=== PATIENT | male | born 1965 | race Caucasian/White ===

== ENCOUNTER 2018-09-04 13:27 | Emergency (ER) | payer OTHER, SELFPAY ==
[2018-09-04 14:29] VITALS: BP 127/85; PULSE 81; RESP 18; TEMP 36.3; O2SAT 98; BMI 34.4
--- NOTE | 2018-09-04 14:31 | DI.RAD.S_ITS ---
PROCEDURE: XR KNEE LT 3V INDICATIONS: INJURED KNEE YESTERDAY TECHNIQUE: 3 views of the knee were acquired. COMPARISON: None. FINDINGS: Bones: No fractures or dislocations. No suspicious bony lesions. Soft tissues: No joint effusion. Mild medial compartment chondrocalcinosis. IMPRESSION: 1. No acute fractures. 2. Mild medial compartment chondrocalcinosis. Dictated by: Anne Jamison M.D. on 09/04/2018 at 15:15 Approved by: Anne Jamison M.D. on 09/04/2018 at 15:15
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
[2018-09-04 17:44] VITALS: BP 133/68; PULSE 85; RESP 14; O2SAT 97
[2018-09-04] MEDS: KETOROLAC 60 MG/2 ML VIAL IM (17:54)
[2018-09-04 18:45] VITALS: BP 136/91; PULSE 82; RESP 18; O2SAT 100
== END 2018-09-04 18:45 | disposition home or self-care (01) ==
PROVIDERS: Emergency Provider Emergency Medicine; Family Provider Family Medicine; PCP Family Medicine
DX: M23.92 Unspecified internal derangement of left knee (principal); W18.43XA Slipping, tripping and stumbling without falling due to stepping from one level to another, initial encounter; Y99.0 Civilian activity done for income or pay
CPT/HCPCS: 73562; 96372; 99283; J1885

== ENCOUNTER 2018-09-28 21:13 | Emergency (ER) | payer OTHER, SELFPAY ==
[2018-09-28 21:39] VITALS: BP 143/91; PULSE 86; RESP 15; TEMP 36.2; O2SAT 94; BMI 33.5
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
[2018-09-28 23:44] VITALS: BP 142/97; PULSE 79; RESP 16; O2SAT 95
[2018-09-29] MEDS: TET,DIPH,PERTUSS(ACELL),VAC/PF 0.5 ML SYRINGE IM (00:55)
--- NOTE | 2018-09-29 01:13 | PC.NURSE ---
Posterior right hand from nuckles to wrist erythema
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
== END 2018-09-29 01:33 | disposition home or self-care (01) ==
PROVIDERS: Emergency Provider Emergency Medicine; Family Provider Family Medicine; PCP Family Medicine
DX: T23.001A Burn of unspecified degree of right hand, unspecified site, initial encounter (principal); T20.00XA Burn of unspecified degree of head, face, and neck, unspecified site, initial encounter; X08.8XXA Exposure to other specified smoke, fire and flames, initial encounter
CPT/HCPCS: 99283; 90715

== ENCOUNTER → 2018-11-22 20:02 | Outpatient (CLI) | payer OTHER, SELFPAY ==
--- NOTE | 2018-11-22 20:04 | DI.MRI.S_ITS ---
PROCEDURE: MR KNEE LT WO CON INDICATIONS: PAIN IN LEFT KNEE TECHNIQUE: Noncontrast sagittal PD fast spin echo and T2 fast spin echo with fat saturation, sagittal 3-D FLASH with fat saturation; coronal T1 spin echo and PD fast spin echo with fat saturation, and axial PD fast spin echo with fat saturation through the knee. COMPARISON: None. FINDINGS: Image quality: Excellent. Menisci: Complex tear involving anterior horn, body and posterior horn of medial meniscus is seen extending to both superior and inferior articulating surfaces. There is no focal lateral meniscal tear. Peripheral displacement of medial meniscus is noted bowing medial collateral ligament. The meniscal root ligaments appear intact. Cruciate ligaments: The anterior and posterior cruciate ligaments appear intact. Medial structures: Moderate grade sprain/ partial-thickness tear involving medial collateral ligament is seen.. The posterior oblique ligament, semimembranosus tendon insertions, oblique popliteal ligament, and meniscocapsular junction appear intact. Visualized portions of the pes anserinus tendons appear normal. No abnormal bursal fluid. Lateral structures: The lateral collateral ligament, long and short heads of the biceps femoris tendon appear intact. The popliteus tendon appears normal; the popliteofibular ligament appears intact. The posterosuperior and anteroinferior popliteomeniscal fascicles appear intact. The arcuate and fabellofibular ligaments appear intact, on either side of the lateral inferior geniculate artery. Iliotibial band appears normal. Anterior structures: The quadriceps appears intact. Thickened patella tendon is seen near its inferior patellar insertion suggestive of patellar tendinosis. No evidence of patella tendon rupture.. Patellar alignment is normal. No femoral trochlear dysplasia or ventral trochlear prominence. No edema in the infrapatellar fat pad. Bones and cartilage: Mild to moderate tricompartmental osteoarthritis and chondromalacia is seen most prominent in the medial femoral tibial compartment. Mild edema involving medial periphery of proximal tibia extending to medial tibial plateau is seen, no discrete fracture line. No other area of abnormal marrow signal. Joint space: There is small to moderate amount of joint fluid, no gross loose body. No Yi's cyst. Normal appearing synovial plicae are incidentally noted. IMPRESSION: 1. Complex tear involving entire medial meniscus extending to both superior and inferior articulating surfaces. No evidence of focal lateral meniscal tear. 2. Moderate grade sprain/partial thickness tear involving the collateral ligament. Cruciate ligaments are intact. 3. [id number] tricompartmental osteoarthritis and chondromalacia most prominent in the medial femorotibial compartment. Small to moderate amount of joint effusion. No gross loose body. Dictated by: Eran Montero M.D. on 11/23/2018 at 9:45 Approved by: Eran Montero M.D. on 11/23/2018 at 9:58
== END ==
PROVIDERS: Family Provider Family Medicine; PCP Family Medicine; Visit Provider Family Medicine
DX: M25.562 Pain in left knee (principal); S83.232A Complex tear of medial meniscus, current injury, left knee, initial encounter; S83.412A Sprain of medial collateral ligament of left knee, initial encounter; M17.12 Unilateral primary osteoarthritis, left knee; M94.262 Chondromalacia, left knee; M25.462 Effusion, left knee
CPT/HCPCS: 73721

== ENCOUNTER → 2019-03-11 16:08 | Outpatient (CLI) | payer OTHER, SELFPAY ==
[2019-03-11 16:56] LABS: Add Manual Diff / Slide Review NO; Basophils Absolute Auto 0 /uL (0-100); Basophils Percent Auto 0.4 % (0-2); Eosinophils Absolute Auto 300 /uL (0-450); Eosinophils Percent Auto 3.9 % (2-4); Hematocrit 47.1 % (41-53); Hemoglobin 16.5 g/dL (13.5-17.5); Lymphocytes Absolute Auto 2400 /uL (1100-4500); Lymphocytes Percent Auto 29.8 % (25-40); Mean Corpuscular HGB Conc 35.1 % (30-36); Mean Corpuscular Hemoglobin 30.5 PG (26-34); Mean Corpuscular Volume 86.9 fL (80-100); Monocytes Absolute Auto 300 /uL (0-900); Monocytes Percent Auto 4.2 % (3-14); Neutrophils Absolute Auto 5100 /uL (1500-7000); Neutrophils Percent Auto 61.7 % (50-75); Platelet Count 194 X10^3/uL (150-400); Red Blood Cell Count 5.42 X10^6/uL (4.5-5.9); Red Cell Distribution Width 12.9 % (11.6-14.8); White Blood Cell Count 8.2 X10^3/uL (4.5-11.0)
[2019-03-11 17:14] LABS: Carbon Dioxide 25 mmol/L (22-32); Chloride 103 mmol/L (98-107); HEMOLYSIS < 15 (0-50); Sodium 138 mmol/L (137-145)
== END ==
PROVIDERS: PCP Family Medicine; Visit Provider Orthopaedic Surgery
DX: Z01.812 Encounter for preprocedural laboratory examination (principal); M17.32 Unilateral post-traumatic osteoarthritis, left knee
CPT/HCPCS: 36415; 80051; 85025; 93005

== ENCOUNTER 2019-03-15 08:31 | Day surgery (SDC) | payer OTHER, SELFPAY ==
[2019-03-15] VITALS (9 sets, daily range): BP systolic 112–146; BP diastolic 62–98; PULSE 90–103; RESP 11–19; TEMP 35.9–36.9; O2SAT 92–98; BMI 36.0
--- NOTE | 2019-03-15 06:00 | DI.RAD.S_ITS ---
PROCEDURE: XR KNEE LT 1TO2V INDICATIONS: uni left knee post operative TECHNIQUE: 2 views of the knee were acquired. [facility]IC SERIES [facility], 11/25/2018, 15:21. FINDINGS: Bones: Status post medial compartment arthroplasty. Hardware is in expected location. No fractures or dislocations. No suspicious bony lesions. Soft tissues: No joint effusion. No suspicious soft tissue calcifications. IMPRESSION: Expected appearance of medial compartment arthroplasty. Dictated by: Johnathan Tello M.D. on 03/15/2019 at 19:22 Approved by: Johnathan Tello M.D. on 03/15/2019 at 19:22
[2019-03-15] MEDS: ACETAMINOPHEN 325 MG TABLET 975 MG PO (09:03)
[2019-03-15] MEDS: PREGABALIN 75 MG CAPSULE PO (09:03)
[2019-03-15] MEDS: CELECOXIB 200 MG CAPSULE PO (09:03)
[2019-03-15] MEDS: LACTATED RINGERS 1,000 ML 42 ML IV ×2 (10:50→16:54)
[2019-03-15] MEDS: VANCOMYCIN 1,000 MG/200 ML PIGGYBACK 200 MG IV (10:50)
--- NOTE | 2019-03-15 11:32 | SUR.PREOP ---
Stopped Vancomycin infusion at this time per MD Orellana verbal order. pt surgery delayed at this time regarding npo status of non surgery ensure drink at 0700.
--- NOTE | 2019-03-15 12:46 | PM.PREOP ---
Pre-operative Note Interval Note History & Physical reviewed/Exam performed by Physician: Yes Changes to H&P: No
--- NOTE | 2019-03-15 12:47 | P.OP_ITS ---
Operative Date/Time/Diagnoses Date of procedure: 03/15/19 Time of procedure: 15:08 Pre-op diagnosis: left knee medial uni replacement Post-op diagnosis: same Procedure & Clinicians Procedure: left knee medial Uni compartment replacement Same procedure as scheduled: Yes Indications: Patient has severe left knee medial compartment arthritis and is brought the operating room for a medial unicompartment replacement. Surgeon: Shelly Orellana Interventional Tech: Dionna Reyes Anesthesia Type: General Operative Notes Findings: Severe left knee medial compartment arthritis, mild patellofemoral arthritis, no obvious lateral compartment also arthritis Closure Type: primary Prosthetic devices, grafts, tissues, transplants, or devices: Orellana and Nephew medial unicompartment ZUK size E femur, size 4 tibia, +10 poly Estimated Blood Loss (mL): 200 Blood products transfused: none Tourniquet time (min): 91 Procedure in detail: The patient was seen in the pre-operative area, where the left knee was identified as the operative site and this was marked with my initials. The patient received pre-operative antibiotics, and was taken to the operating room and placed on the operative table in the supine position. After satisfactory anesthesia, a timekeeping supervisor out was performed. The left leg was encircled with a tourniquet about the proximal thigh, and the leg was prepared from the toes to the tourniquet with ChloroPrep in the usual fashion and draped through sterile drapes. The leg was elevated and exsanguinated with Eschmark bandage and the tourniquet inflated to [250] mmHg pressure. The knee was approached through an approximately 14 cm incision medial parapatella incision and carried into the knee through a medial parapatellar arthrotomy. The osteophytes and medial meniscus were removed. Next, a small amount of the anterior tibial boss was carefully resected with a saw. The guide was placed along the medial joint line. It was meticulously adjusted to make sure there was appropriate slope that it was at the joint line and then was pinned to the tibia and the femur. The medial femoral condylar cut was made in extension. The tibial cut was made in flexion. The bone was meticulously irrigated with normal saline. Small amount of additional meniscus was resected posterior capsule was checked and injected with Marcaine. The extension gap was carefully checked with an 8 mm gap field party manager was noted that it fit well. A small number of additional osteophytes were resected. The tibia was a size [4]. It was noted that it fit without overhang. The femur was sized and it was noted to be a [E]. The appropriate cutting guide was pinned into place and carefully positioned on the femoral condyle. Drill holes were placed. The tibia was pinned into place and drill holes were made. Trial reduction with the appropriate poly showed full range of motion and good stability at 0, 45. and 90? with normal tracking of the components without edge loading. The bone was meticulously irrigated and dried. Additional Marcaine was injected. The posterior capsule was injected with 0.25% Marcaine mixed with 20 ml Exparel for post-operative pain control. The remainder of this mixture was injected into the capsule and subcutaneous tissues during cement curing. Range of motion was [0-130], with good stability throughout the range. The trials were then remove. The cement was as applied and the final pros thetics placed. Excess cement was removed during and after cement curing. A brief medial compartment Betadine soak was performed. After confirming there was no extruded cement posteriorly, the final tibial insert was placed. The knee was copiously irrigated and the tourniquet deflated. Hemostasis was obtained. The capsule was closed with interrupted Vicryl. The subcutaneous tissue was closed with barbed sutures. The skin with a running 3-0 V-Lock suture and surgical glue. An Aquacel Ag dressing was applied and the patient was taken to recovery having tolerated the procedure well. Complications: none Condition: stable Disposition: same day surgery Plan for aftercare: The patient will be maintained on a standard unicompartment knee replacement protocol with weight bearing as tolerated. The patient will receive aspirin and sequential compression devices for DVT prophylaxis. The patient will be discharged home when safe for the home environment.
--- NOTE | 2019-03-15 12:48 | PM.PREOP ---
Pre-operative Note Interval Note History & Physical reviewed/Exam performed by Physician: Yes Changes to H&P: No
--- NOTE | 2019-03-15 15:20 | SUR.PREOP ---
Restarted the remaining vancomycin at this time per Dr. Orellana.
[2019-03-15] MEDS: CEFAZOLIN 2 GM/100 ML FROZ.PIGGY IV (16:20)
--- NOTE | 2019-03-15 16:45 | SUR.OPER ---
Supine on padded OR bed. Pillow under head, arms secured on padded armboards <90 degree abduction. Safety belt across torso. Non-operative leg secured with tape over blanket over lower leg. Operative leg secured in Henry positioner. Foam padded brace at thigh of operative leg.
[2019-03-15] MEDS: BUPIVACAINE 0.25% W/ EPI 30 ML VIAL 60 ML INJ (16:50)
[2019-03-15] MEDS: SODIUM CHLORIDE IRRIG SOLUTION 250 ML, POVIDONE-IODINE SPONGE STICKS 1 APPLIC IRR (16:51)
[2019-03-15] MEDS: BUPIVACAINE LIPOSOME 266 MG/20 ML VIAL INJ (16:51)
[2019-03-15] MEDS: TRANEXAMIC ACID 1,000 MG VIAL 1000 MG INJ (16:52)
[2019-03-15] MEDS: fentaNYL 100 MCG/2 ML INJ 50 MCG IV (19:04)
[2019-03-15] MEDS: OXYCODONE IR 5 MG TABLET PO (19:07)
--- NOTE | 2019-03-15 19:11 | SUR.PHASEI ---
190 PO rx for c/o pain/throbbing in left knee. Pt states pain is 7/10, however he is joking, laughing, asking about dancing, going to the casino, etc. present. [address] Dr Orellana talking with patient and . Pt. plans to go home [place].
--- NOTE | 2019-03-15 19:35 | SUR.PHASEI ---
1934 slight nausea, declines PO rx, quease-ease given.
--- NOTE | 2019-03-15 20:02 | SUR.PHASEII ---
1935+ transferred to phase II care; anxious to go home, pain level improving and tolerable. Discussed the necessity of CPAP use w/pt and spouse. VSS, no drainage at site, CMS WNL. IV dc'd and clothes given.
== END 2019-03-15 19:52 | disposition home or self-care (01) ==
PROVIDERS: PCP Family Medicine; Visit Provider Orthopaedic Surgery
PROC: (CPT 27446; principal; 2019-03-15 10:45)
DX: S83.222A Peripheral tear of medial meniscus, current injury, left knee, initial encounter (principal); M17.32 Unilateral post-traumatic osteoarthritis, left knee; K21.9 Gastro-esophageal reflux disease without esophagitis; Z72.0 Tobacco use; W17.2XXA Fall into hole, initial encounter
CPT/HCPCS: 27446; 73560; C1776; C9290; J0690; J1100; J2250; J2405; J2704; J3010

== ENCOUNTER → 2019-08-31 11:16 | Outpatient (CLI) | payer OTHER, SELFPAY ==
[2019-08-31 12:15] LABS: Add Manual Diff / Slide Review NO; Basophils Absolute Auto 0 /uL (0-100); Basophils Percent Auto 0.4 % (0-2); Eosinophils Absolute Auto 300 /uL (0-450); Eosinophils Percent Auto 3.8 % (2-4); Hematocrit 47.5 % (41-53); Hemoglobin 16.3 g/dL (13.5-17.5); Lymphocytes Absolute Auto 2100 /uL (1100-4500); Lymphocytes Percent Auto 30.4 % (25-40); Mean Corpuscular HGB Conc 34.3 % (30-36); Mean Corpuscular Hemoglobin 30.4 PG (26-34); Mean Corpuscular Volume 88.5 fL (80-100); Monocytes Absolute Auto 500 /uL (0-900); Monocytes Percent Auto 7.6 % (3-14); Neutrophils Absolute Auto 4000 /uL (1500-7000); Neutrophils Percent Auto 57.8 % (50-75); Platelet Count 211 X10^3/uL (150-400); Red Blood Cell Count 5.37 X10^6/uL (4.5-5.9); Red Cell Distribution Width 13.9 % (11.6-14.8); White Blood Cell Count 6.9 X10^3/uL (4.5-11.0)
[2019-08-31 13:22] LABS: Erythrocyte Sedimentation Rate 4 MM/HR (0-15)
[2019-08-31 13:34] LABS: C-Reactive Protein Quant < 0.5 mg/dL (<1.0)
== END ==
PROVIDERS: PCP Family Medicine; Referring Provider Orthopaedic Surgery; Visit Provider Orthopaedic Surgery
DX: M17.12 Unilateral primary osteoarthritis, left knee (principal); Z96.652 Presence of left artificial knee joint
CPT/HCPCS: 36415; 85025; 85651; 86140

== ENCOUNTER → 2019-09-19 10:12 | Outpatient (CLI) | payer OTHER, SELFPAY ==
--- NOTE | 2019-09-19 | DI.NM.S_ITS ---
PROCEDURE: NM BONE SCAN WHOLE BODY RADIOPHARMACEUTICAL: 21.0 mCi Tc-99m MDP IV. INDICATIONS: Presence of left artificial knee joint TECHNIQUE: Delayed whole-body scintigrams were obtained approximately 3-4 hours after intravenous injection of radiotracer. Anterior and posterior views were acquired from vertex to feet. Additional left and right oblique views of the left knee were obtained. COMPARISON: [facility], [place], XR KNEE ARTHRITIC SERIES LT, 03/30/2019, 15:59. [facility], CR, XR KNEE ARTHRITIC SERIES LT, 06/29/2019, 9:30. [facility], CR, XR KNEE ARTHRITIC SERIES LT, 07/27/2019, 10:14. [facility], CR, XR KNEE ARTHRITIC SERIES LT, 11/25/2018, 15:21. [facility], CR, KNEE 1 OR 2VW (LT), 05/05/2014, 9:59. [facility], CR, KNEE 1 OR 2VW (RT), 05/05/2014, 10:04. FINDINGS: Relative subtle radiotracer uptake noted adjacent to the femoral component of left knee medial unicondylar arthroplasty likely related to postsurgical change. Relative intense radiotracer uptake noted adjacent to the tibial component of the left knee medial unicondylar arthroplasty which is nonspecific and may represent loosening or infection of the prosthesis. Relative subtle radiotracer uptake noted in the shoulders bilaterally compatible with osteoarthritis. IMPRESSION: 1. Relative intense radiotracer uptake adjacent to tibial component of left knee arthroplasty concerning for prosthesis loosening or infection. 2. Relative mild radiotracer uptake adjacent to the femoral component of left knee arthroplasty likely related to postsurgical change. Dictated by: Rabia Duff MD, PhD on 09/19/2019 at 14:42 Approved by: Rabia Duff MD, PhD on 09/19/2019 at 14:47
== END ==
PROVIDERS: PCP Family Medicine; Referring Provider Family Medicine; Visit Provider Orthopaedic Surgery
DX: M25.562 Pain in left knee (principal); M17.12 Unilateral primary osteoarthritis, left knee; Z96.652 Presence of left artificial knee joint
CPT/HCPCS: 78306; A9503

== ENCOUNTER 2020-01-09 11:54 | Emergency (ER) | payer OTHER, SELFPAY ==
[2020-01-09 12:04] VITALS: BP 159/101; PULSE 92; RESP 20; TEMP 36.7; O2SAT 99; BMI 37.3
[2020-01-09 12:30] VITALS: PULSE 80
--- NOTE | 2020-01-09 12:40 | DI.US.S_ITS ---
PROCEDURE: US PERIPH VENOUS LOW EXTREM LT INDICATIONS: PAIN TECHNIQUE: Real-time imaging, as well as color and pulse Doppler interrogation, were performed of the lower extremity deep veins from the inguinal ligament to the popliteal fossa. COMPARISON: None. FINDINGS: The common femoral, femoral and popliteal veins are normally compressible, and free of intraluminal thrombus. Color and pulse Doppler demonstrate normal phasic intraluminal flow. There is normal augmentation response to distal compression maneuver. Large popliteal cyst is evident. IMPRESSION: 1. No evidence of deep vein thrombosis of the left lower extremity. 2. Apparent Yi's cyst. Dictated by: Ethan Díaz M.D. on 01/09/2020 at 12:30 Approved by: Ethan Díaz M.D. on 01/09/2020 at 12:31
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
[2020-01-09 13:20] LABS: Add Manual Diff / Slide Review NO; Basophils Absolute Auto 100 /uL (0-100); Basophils Percent Auto 0.5 % (0-2); Eosinophils Absolute Auto 200 /uL (0-450); Eosinophils Percent Auto 2.1 % (2-4); Hematocrit 43.5 % (41-53); Hemoglobin 14.8 g/dL (13.5-17.5); Lymphocytes Absolute Auto 2000 /uL (1100-4500); Lymphocytes Percent Auto 21.1 % (25-40); Mean Corpuscular HGB Conc 34.1 % (30-36); Mean Corpuscular Hemoglobin 29.9 PG (26-34); Mean Corpuscular Volume 87.8 fL (80-100); Monocytes Absolute Auto 600 /uL (0-900); Monocytes Percent Auto 5.8 % (3-14); Neutrophils Absolute Auto 6800 /uL (1500-7000); Neutrophils Percent Auto 70.5 % (50-75); Platelet Count 301 X10^3/uL (150-400); Red Blood Cell Count 4.95 X10^6/uL (4.5-5.9); Red Cell Distribution Width 13.1 % (11.6-14.8); White Blood Cell Count 9.6 X10^3/uL (4.5-11.0)
[2020-01-09 13:31] LABS: Lactate (Lactic Acid) 1.1 mmol/L (0.7-2.1)
[2020-01-09 13:32] LABS: Blood Urea Nitrogen 30 mg/dL (9-20); Calcium 10.2 mg/dL (8.4-10.2); Carbon Dioxide 26 mmol/L (22-32); Chloride 107 mmol/L (98-107); Estimated Glomerular Filt Rate > 60.0 mL/min (>60); Glucose 104 mg/dL (70-100); HEMOLYSIS < 15 (0-50); Potassium 4.3 mmol/L (3.4-5.1); Sodium 141 mmol/L (137-145)
[2020-01-09 13:55] VITALS: BP 103/65; PULSE 86; RESP 18; O2SAT 99
== END 2020-01-09 13:57 | disposition home or self-care (01) ==
PROVIDERS: Emergency Provider Nurse Practitioner Family; PCP Family Medicine
DX: G89.18 Other acute postprocedural pain (principal); M79.605 Pain in left leg; M71.22 Synovial cyst of popliteal space [Baker], left knee; Z96.653 Presence of artificial knee joint, bilateral
CPT/HCPCS: 36415; 80048; 83605; 85025; 93971; 99281; 99284

== ENCOUNTER → 2020-01-24 10:52 | Outpatient (CLI) | payer OTHER, SELFPAY ==
--- NOTE | 2020-01-24 | DI.MRI.S_ITS ---
PROCEDURE: MR LUMBAR SPINE WO CON INDICATIONS: radiculopathy , lumbosacral region TECHNIQUE: Noncontrast sagittal T1 spin echo and T2 fast echo, sagittal STIR, axial T1 and T2 fast spin echo through the lumbar spine. Axial and oblique coronal T1 spin echo and STIR through the sacrum. In cases with scoliosis, additional coronal T2 fast spin echo may be performed. COMPARISON: [place], [place], [place] BONE SCAN WHOLE BODY, 09/19/2019, 13:39. FINDINGS: Image quality: Excellent. Alignment and Curvature: There is normal bony alignment. Bone Marrow: Marrow is of normal overall signal. No acute vertebral body compression fractures. No sacral fractures. Spinal Cord: Conus medullaris terminates at the L1 level. Visualized cord demonstrates normal signal and size. Paraspinous Soft Tissues: No paravertebral masses. T12-L1: Normal appearance. L1-L2: Normal appearance. L2-L3: No significant abnormality is seen. L3-L4: The disc height and disc signal are relatively well-preserved. Mild to moderate disc bulge is seen. Hmil-iy-uvtjbugg facet hypertrophy is seen. Vzwe-lo-nylaxdop bilateral neural foraminal narrowing is seen. Mild central canal narrowing is seen. L4-L5: The disc height is well-preserved. Loss of disc signal is seen at this level. Moderate disc bulge is seen, with a mild central disc protrusion. There is a focal annular fissure seen posteriorly. Moderate bilateral neural foraminal narrowing is seen. Mild central canal narrowing is seen. L5-S1: Moderate loss of disc height is seen. Loss of disc signal is seen. There is a focal annular fissure seen posteriorly. Moderate disc bulge is seen, which is eccentric to the left. There is a central/left disc protrusion seen. Qcts-ps-nikiwzia facet hypertrophy is seen. There is at least moderate bilateral neural foraminal narrowing seen, right worse than left. Mild to moderate central canal narrowing is seen. Sacrum: Sacral neural foramina appear normal throughout. Superior to the piriformis muscles, the pre-plexal structures appear normal, including the lumbosacral trunk and S1 root. Just anterior to the piriformis muscles, the sacral plexus proper demonstrates normal morphology (lumbosacral trunk, S1 to S3 nerve roots). Inferior to the piriformis muscles, the sciatic nerves appear normal. IMPRESSION: Lower lumbar spine degenerative changes are seen, which are most prominent at the L5-S1 level. No significant signal abnormality is seen. Dictated by: Cristopher Chao M.D. on 01/24/2020 at 11:06 Approved by: Cristopher Chao M.D. on 01/24/2020 at 11:09
== END ==
PROVIDERS: PCP Family Medicine; Referring Provider Registered Nurse Diabetes Educator; Visit Provider Registered Nurse Diabetes Educator
DX: M47.27 Other spondylosis with radiculopathy, lumbosacral region (principal)
CPT/HCPCS: 72148

== ENCOUNTER → 2020-04-09 15:30 | Outpatient (CLI) | payer OTHER, SELFPAY ==
--- NOTE | 2020-04-09 | DI.MRI.S_ITS ---
PROCEDURE: MR ANKLE RT WO CON INDICATIONS: RIGHT HEEL PAIN TECHNIQUE: Noncontrast sagittal T1 spin echo and T2 fast spin echo with fat saturation, axial proton density fast spin echo and T2 fast spin echo with fat saturation, coronal T1 spin echo and T2 fast spin echo with fat saturation through the ankle/hindfoot. COMPARISON: [facility], MR, MR ANKLE LT WO CON, 04/09/2020, 15:46. FINDINGS: Image quality: Excellent. Bones and joints: No bone marrow contusions or fractures. Mild midfoot joint osteoarthritic changes are seen particularly involving tarsal metatarsal joints. No hindfoot coalitions. No osteochondral injuries of the talar dome. No pathologic joint effusions. Medial structures: The posterior tibialis, flexor digitorum longus, and flexor hallucis longus tendons are intact. The posterior tibial neurovascular bundle appears normal within the tarsal tunnel, without extrinsic mass effect. The deep layer (anterior and posterior tibiotalar ligaments) and superficial layer (tibionavicular, tibiospring, and tibiocalcaneal ligaments) of the deltoid ligament appear normal. The spring ligament components (superomedial calcaneonavicular, medioplantar oblique calcaneonavicular, and inferoplantar longitudinal ligaments) are intact. Lateral structures: The anterior talofibular, calcaneofibular, and posterior talofibular ligaments appear intact. More superiorly, the anterior and posterior tibiofibular ligaments appear intact, as is the intermalleolar ligament. The tibiofibular syndesmosis is normal in width at 2 mm or less. The peroneus longus and brevis tendons demonstrate normal location and morphology. Adjacent bony peroneal tubercle and retrotrochlear prominence are normal in size. The sinus tarsi demonstrates normal fatty signal, without edema, fibrosis, or cyst formation. Visualized sinus tarsi components (cervical ligament, interosseous talocalcaneal ligament, roots of the inferior extensor retinaculum) appear normal. The calcaneonavicular and calcaneocuboid components of the bifurcate ligament appear intact. The dorsal calcaneocuboid ligament appears intact. Anterior structures: The tibialis anterior, extensor hallucis longus, and extensor digitorum longus tendons appear intact. The dorsal talonavicular ligament appears intact. Posterior and plantar structures: Achilles tendon is intact. Mildly thickened medial band of plantar aponeurosis at its plantar calcaneal insertion is seen. Lateral band is of normal thickness.. No abductor digiti quinti muscle atrophy to suggest [place]jo neuropathy. IMPRESSION: 1. Suggestion of very low-grade plantar fasciitis with thickening of medial band of the plantar fascia at its plantar calcaneal insertion. Achilles tendon is intact. 2. Mild midfoot joint osteoarthritis particularly involving tarsal metatarsal joints. No marrow edema. No fracture or dislocation. 3. Rest of ankle tendons and ligaments are intact. Dictated by: Eran Montero M.D. on 04/09/2020 at 16:48 Approved by: Eran Montero M.D. on 04/09/2020 at 16:50
--- NOTE | 2020-04-09 15:33 | DI.MRI.S_ITS ---
PROCEDURE: MR ANKLE LT WO CON INDICATIONS: LEFT HEEL PAIN TECHNIQUE: Noncontrast sagittal T1 spin echo and T2 fast spin echo with fat saturation, axial proton density fast spin echo and T2 fast spin echo with fat saturation, coronal T1 spin echo and T2 fast spin echo with fat saturation through the ankle/hindfoot. COMPARISON: None. FINDINGS: Image quality: Excellent. Bones and joints: No bone marrow contusions or fractures. Mild midfoot joint osteoarthritic changes are seen. No hindfoot coalitions. No osteochondral injuries of the talar dome. No pathologic joint effusions. Medial structures: The posterior tibialis, flexor digitorum longus, and flexor hallucis longus tendons are intact. The posterior tibial neurovascular bundle appears normal within the tarsal tunnel, without extrinsic mass effect. The deep layer (anterior and posterior tibiotalar ligaments) and superficial layer (tibionavicular, tibiospring, and tibiocalcaneal ligaments) of the deltoid ligament appear normal. The spring ligament components (superomedial calcaneonavicular, medioplantar oblique calcaneonavicular, and inferoplantar longitudinal ligaments) are intact. Lateral structures: The anterior talofibular, calcaneofibular, and posterior talofibular ligaments appear intact. More superiorly, the anterior and posterior tibiofibular ligaments appear intact, as is the intermalleolar ligament. The tibiofibular syndesmosis is normal in width at 2 mm or less. The peroneus longus and brevis tendons demonstrate normal location and morphology. Adjacent bony peroneal tubercle and retrotrochlear prominence are normal in size. The sinus tarsi demonstrates normal fatty signal, without edema, fibrosis, or cyst formation. Visualized sinus tarsi components (cervical ligament, interosseous talocalcaneal ligament, roots of the inferior extensor retinaculum) appear normal. The calcaneonavicular and calcaneocuboid components of the bifurcate ligament appear intact. The dorsal calcaneocuboid ligament appears intact. Anterior structures: The tibialis anterior, extensor hallucis longus, and extensor digitorum longus tendons appear intact. The dorsal talonavicular ligament appears intact. Posterior and plantar structures: Distal Achilles tendinosis at its posterior calcaneal insertion is seen. No evidence of Achilles tendon rupture. Medial band of plantar fascia is mildly thickened at its plantar calcaneal insertion. Lateral band is normal in thickness. No abductor digiti quinti muscle atrophy to suggest [place] neuropathy. IMPRESSION: 1. Very mild thickening of medial band of the plantar fascia at its plantar calcaneal insertion suggestive of very low-grade plantar fasciitis. 2. Suggestion of mild tendinosis involving distal Achilles tendon at its posterior calcaneal insertion. 3. Rest of the ankle tendons and ligaments are intact. 4. Mild midfoot joint osteoarthritis. No fracture or dislocation. Dictated by: Eran Montero M.D. on 04/09/2020 at 16:40 Approved by: Eran Montero M.D. on 04/09/2020 at 16:47
== END ==
PROVIDERS: PCP Family Medicine; Referring Provider Podiatrist; Visit Provider Podiatrist
DX: M79.671 Pain in right foot (principal); M79.672 Pain in left foot; M72.2 Plantar fascial fibromatosis; M19.072 Primary osteoarthritis, left ankle and foot; M19.071 Primary osteoarthritis, right ankle and foot
CPT/HCPCS: 73721

== ENCOUNTER 2020-06-15 10:04 | Emergency (ER) | payer OTHER, SELFPAY ==
[2020-06-15 10:05] VITALS: BP 138/84; PULSE 79; RESP 22; TEMP 36.1; O2SAT 98; BMI 37.3
--- NOTE | 2020-06-15 10:17 | DI.RAD.S_ITS ---
PROCEDURE: XR CHEST 1V INDICATIONS: chest pain TECHNIQUE: One view of the chest was acquired. COMPARISON: [facility], , CHEST 2VW, 05/05/2014, 9:58. FINDINGS: Surgical changes and devices: None. Lungs and pleura: Lungs are clear. No pleural effusions or pneumothorax. Mediastinum: Mediastinal contours appear normal. Heart size is normal. Bones and chest wall: No suspicious bony lesions. Age-appropriate bony degenerative changes are seen. Overlying soft tissues appear unremarkable. IMPRESSION: Portable chest within normal limits. Dictated by: Cristopher Chao M.D. on 06/15/2020 at 9:41 Approved by: Cristopher Chao M.D. on 06/15/2020 at 9:43
[2020-06-15 10:25] LABS: Add Manual Diff / Slide Review NO; Basophils Absolute Auto 0 /uL (0-100); Basophils Percent Auto 0.3 % (0-2); Eosinophils Absolute Auto 200 /uL (0-450); Eosinophils Percent Auto 3.2 % (2-4); Hematocrit 47.8 % (41-53); Hemoglobin 16.3 g/dL (13.5-17.5); Lymphocytes Absolute Auto 1900 /uL (1100-4500); Lymphocytes Percent Auto 28.7 % (25-40); Mean Corpuscular HGB Conc 34.2 % (30-36); Mean Corpuscular Hemoglobin 29.6 PG (26-34); Mean Corpuscular Volume 86.4 fL (80-100); Monocytes Absolute Auto 400 /uL (0-900); Monocytes Percent Auto 6.4 % (3-14); Neutrophils Absolute Auto 4200 /uL (1500-7000); Neutrophils Percent Auto 61.4 % (50-75); Platelet Count 201 X10^3/uL (150-400); Red Blood Cell Count 5.52 X10^6/uL (4.5-5.9); Red Cell Distribution Width 13.8 % (11.6-14.8); White Blood Cell Count 6.8 X10^3/uL (4.5-11.0)
[2020-06-15 10:27] LABS: INR 1.1 (0.9-1.3); Prothrombin Time 12.4 SECONDS (10.1-12.7)
[2020-06-15 10:29] LABS: PTT Partial Thromboplastin Tim 34 SECONDS (26.4-36.2)
[2020-06-15 10:31] LABS: Alanine Aminotransferase 30 IU/L (<50); Albumin 4.2 g/dL (3.5-5.0); Albumin Globulin Ratio 1.4 (1.0-2.8); Alkaline Phosphatase 108 U/L (38-126); Aspartate Aminotransferase 28 IU/L (17-59); BUN Creatinine Ratio 15.8 (6-22); Bilirubin Total 1.4 mg/dL (0.2-1.3); Blood Urea Nitrogen 18 mg/dL (9-20); Calcium 9.6 mg/dL (8.4-10.2); Carbon Dioxide 29 mmol/L (22-32); Chloride 102 mmol/L (98-107); Creatine Kinase 78 U/L (55-170); Estimated Glomerular Filt Rate > 60.0 mL/min (>60); Globulin 3.1 g/dL (1.7-4.1); Glucose 150 mg/dL (70-100); HEMOLYSIS 15 (0-50); Lipase 56 U/L (23-300); Potassium 4.1 mmol/L (3.4-5.1); Sodium 135 mmol/L (137-145); Total Protein 7.3 g/dL (6.3-8.2)
[2020-06-15 10:43] LABS: Troponin I < 0.012 ng/mL (0.01-0.034)
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
[2020-06-15 11:45] VITALS: PULSE 87; O2SAT 96
--- NOTE | 2020-06-15 11:50 | DI.US.S_ITS ---
PROCEDURE: US PERIPH VENOUS LOW EXTREM BI INDICATIONS: SWELLING, REMOTE SURGERY, RULE OUT DVT TECHNIQUE: Real-time imaging, as well as color and pulse Doppler interrogation, were performed of the deep veins of both legs from the inguinal ligament to the popliteal fossa. COMPARISON: None. FINDINGS: Right: The common femoral, femoral and popliteal veins are normally compressible, and free of intraluminal thrombus. Color and pulse Doppler demonstrate normal phasic intravascular flow. There is normal augmentation response to distal compression maneuver. Left: The common femoral, femoral and popliteal veins are normally compressible, and free of intraluminal thrombus. Color and pulse Doppler demonstrate normal phasic intravascular flow. There is normal augmentation response to distal compression maneuver. IMPRESSION: No sonographic evidence of DVT. Dictated by: Zay Amor M.D. on 06/15/2020 at 13:23 Approved by: Zay Amor M.D. on 06/15/2020 at 13:24
[2020-06-15] MEDS: MAG HYDROX/ALUMINUM/SIMETH SUS 20 ML, LIDOCAINE VISCOUS 2% 15 ML PO (12:06)
[2020-06-15 12:07] LABS: D Dimer 374 ng/mL (<230)
[2020-06-15] MEDS: PANTOPRAZOLE 40 MG VIAL IV (12:07)
[2020-06-15 12:15] LABS: NT-proBNP (BNP-Adult 18+) 20 pg/mL (<125)
--- NOTE | 2020-06-15 12:51 | DI.CT.S_ITS ---
PROCEDURE: CT ANGIO CHEST PE PROTOCOL INDICATIONS: chest pain TECHNIQUE: After the administration of intravenous contrast, 2 mm thick sections acquired from the pulmonary apices to the posterior costophrenic angles. 3-dimensional maximum intensity projection (MIP) coronal and sagittal reformats were then acquired through the thorax. For radiation dose reduction, the following was used: automated exposure control, adjustment of mA and/or kV according to patient size. COMPARISON: [facility], US, US VENOUS LOWER EXTREMITY DOPPLER LEFT, 04/30/2020, 12:14. FINDINGS: Image quality: Excellent. Pulmonary arteries: Pulmonary arteries are normal in size, and demonstrate no intraluminal filling defects to suggest central pulmonary embolism. Lungs and pleura: Lungs are clear except for slight dependent atelectasis. No pleural effusions or pneumothorax. Central and peripheral airways are patent. Mediastinum: Heart size is normal, without pericardial effusion. No mediastinal or hilar adenopathy. Thoracic aorta is normal in caliber and enhancement. Esophagus is normal in caliber, without hiatal hernia. Bones and chest wall: No suspicious bony lesions. Ribs and thoracic spine appear intact throughout. Thyroid gland appears normal where well seen . No axillary or supraclavicular adenopathy. Abdomen: Visualized upper abdominal solid organs appear normal in the early arterial phase of enhancement. IMPRESSION: No pulmonary embolus found. Source of current chest pain symptoms is not identified. Dictated by: García Cyr M.D. on 06/15/2020 at 13:20 Approved by: García Cyr M.D. on 06/15/2020 at 13:22
[2020-06-15 13:00] VITALS: BP 150/86; PULSE 74; RESP 16; O2SAT 97
[2020-06-15 13:30] VITALS: BP 145/93; PULSE 79; RESP 20; O2SAT 97
== END 2020-06-15 13:53 | disposition home or self-care (01) ==
PROVIDERS: Emergency Provider Emergency Medicine
DX: R07.9 Chest pain, unspecified (principal); F17.220 Nicotine dependence, chewing tobacco, uncomplicated; M79.89 Other specified soft tissue disorders
CPT/HCPCS: 36415; 71045; 71275; 80053; 82550; 83690; 83880; 84484; 85025; 85379; 85610; 85730; 93005; 93010; 93970; 96374; 99284; C9113; Q9967

== ENCOUNTER → 2020-07-31 09:43 | Outpatient (CLI) | payer OTHER, SELFPAY ==
[2020-07-31 10:41] LABS: Cholesterol 184 mg/dL (140-199); HDL Cholesterol 40 mg/dL (40-60); LDL Cholesterol Calculated 121 mg/dL (<100); Triglycerides 114 mg/dL (35-150)
== END ==
PROVIDERS: Referring Provider Internal Medicine Cardiovascular Disease; Visit Provider Internal Medicine Cardiovascular Disease
DX: Z00.00 Encounter for general adult medical examination without abnormal findings (principal)
CPT/HCPCS: 36415; 80061

== ENCOUNTER → 2020-09-05 11:19 | Outpatient (CLI) | payer OTHER, SELFPAY ==
[2020-09-05 13:26] LABS: COVID19 -Nasal RAPID Negative (Negative)
== END ==
PROVIDERS: Visit Provider Physician Assistant
DX: Z20.822 Contact with and (suspected) exposure to COVID-19 (principal)
CPT/HCPCS: 87635

== ENCOUNTER → 2020-09-06 15:09 | Outpatient (CLI) | payer OTHER, SELFPAY ==
--- NOTE | 2020-09-06 20:25 | DI.NM.S_ITS ---
DATE OF SERVICE: 09/06/2020 PROCEDURE: Exercise stress test study. INDICATIONS: Chest pain. EXERCISE STRESS TEST: The patient underwent exercise stress test under the supervision of attending staff. He walked on Iban protocol for 6 minutes and 01 seconds, achieved 98 percent of target heart rate, normal blood pressure response. Baseline blood pressure 130/82. Peak blood pressure 170/90. Baseline EKG revealed sinus rhythm. During stress, there were no convincing ischemic changes or significant arrhythmias seen. Patient did not have any anginal symptoms. He achieved 7 METs of workload. CONCLUSION: Exercise stress test is negative for inducible ischemia. Normal hemodynamic response. No anginal symptoms. The patient had left knee pain and fatigue during exercise. He achieved 7 METs of workload. Exercise capacity is diminished. Overall, this is a low-risk exercise stress test. Bhupendra Hummel - RICK/marta/denita doc#: [id number]/job#: [id number] dd: 09/06/2020 17:48:00 dt: 09/06/2020 20:12:00 DICTATING /COPIES TO: Homa Flaherty MD COPIES MNE: LGENNY;
== END ==
PROVIDERS: Referring Provider Internal Medicine Cardiovascular Disease; Visit Provider Internal Medicine Cardiovascular Disease
DX: R07.9 Chest pain, unspecified (principal)
CPT/HCPCS: 93017

== ENCOUNTER → 2022-06-04 13:04 | Outpatient (CLI) | payer MEDICARE, OTHER, SELFPAY ==
--- NOTE | 2022-06-04 | DI.MRI.S_ITS ---
PROCEDURE: MR KNEE RT WO CON INDICATIONS: Pain in right knee TECHNIQUE: Noncontrast sagittal PD fast spin echo and T2 fast spin echo with fat saturation, sagittal 3-D FLASH with fat saturation; coronal T1 spin echo and PD fast spin echo with fat saturation, and axial PD fast spin echo with fat saturation through the knee. COMPARISON: [facility], MR, MR KNEE LT WO CON, 11/22/2018, 20:15. FINDINGS: Image quality: Excellent. Menisci: Oblique tear involving posterior horn of medial meniscus extending to inferior articulating surface is seen. Lateral meniscus is intact. The meniscal root ligaments appear intact. Cruciate ligaments: The anterior and posterior cruciate ligaments appear intact. Medial structures: The medial collateral ligament appears mildly thickened. The posterior oblique ligament, semimembranosus tendon insertions, oblique popliteal ligament, and meniscocapsular junction appear intact. Visualized portions of the pes anserinus tendons appear normal. No abnormal bursal fluid. Lateral structures: The lateral collateral ligament, long and short heads of the biceps femoris tendon appear intact. The popliteus tendon appears normal; the popliteofibular ligament appears intact. Iliotibial band appears normal. Anterior structures: The quadriceps and patellar tendons appear intact. Patellar alignment is normal. No femoral trochlear dysplasia or ventral trochlear prominence. No edema in the infrapatellar fat pad. Bones and cartilage: No bone marrow contusions or fractures. Low-grade chondromalacia and mild osteoarthritis in medial femoral tibial compartment and patellofemoral compartment is seen. Joint space: There is small knee joint fluid. No Yi's cyst. Normal appearing synovial plicae are incidentally noted. IMPRESSION: 1. Oblique tear involving posterior horn of medial meniscus extending to inferior articulating surface. No focal lateral meniscal tear. 2. Low-grade MCL sprain. Cruciate ligaments are intact. 3. 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 No fracture or dislocation. Small joint effusion, no gross loose bodies. Dictated by: Eran Montero M.D. on 06/04/2022 at 15:07 Approved by: Eran Montero M.D. on 06/04/2022 at 15:09
== END ==
PROVIDERS: Referring Provider Family Medicine; Visit Provider Family Medicine
DX: S83.241A Other tear of medial meniscus, current injury, right knee, initial encounter (principal); S83.411A Sprain of medial collateral ligament of right knee, initial encounter; M17.11 Unilateral primary osteoarthritis, right knee; M22.41 Chondromalacia patellae, right knee; M25.461 Effusion, right knee; M25.561 Pain in right knee
CPT/HCPCS: 73721

== ENCOUNTER 2023-03-29 19:53 | Emergency (ER) | payer MEDICARE, OTHER, SELFPAY ==
[2023-03-29] VITALS (8 sets, daily range): BP systolic 132–170; BP diastolic 71–102; PULSE 100–107; RESP 16–36; TEMP 36.4–36.5; O2SAT 93–97
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
--- NOTE | 2023-03-29 20:07 | DI.RAD.S_ITS ---
PROCEDURE: XR RIBS LT MIN 3V W CXR1V INDICATIONS: Left lower rib pain after fall TECHNIQUE: Four views of the left ribs were acquired, along with a single view chest. COMPARISON: None. FINDINGS: Surgical changes and devices: None. Bones and chest wall: No displaced rib fracture identified. No suspicious bony lesions. Overlying soft tissues appear unremarkable. Lungs and pleura: No pleural effusions or pneumothorax. Lungs appear clear. Mediastinum: Mediastinal contours appear normal. Heart size is normal. IMPRESSION: 1. No displaced rib fracture identified. Dictated by: Michael Reece M.D. on 03/29/2023 at 21:31 Approved by: Michael Reece M.D. on 03/29/2023 at 21:32
[2023-03-29] MEDS: HYDROMORPHONE 1 MG INJ IV (20:18)
[2023-03-29] MEDS: CYCLOBENZAPRINE 10 MG PREPACK 1 BOTTLE MISC (21:53)
[2023-03-29] MEDS: HYDROCODONE/ACET 5/325 PREPACK 1 BOTTLE MISC (21:53)
[2023-03-29] MEDS: CYCLOBENZAPRINE 10 MG TABLET PO (21:53)
== END 2023-03-29 22:05 | disposition home or self-care (01) ==
PROVIDERS: Emergency Provider Emergency Medicine
DX: S22.32XA Fracture of one rib, left side, initial encounter for closed fracture (principal); W19.XXXA Unspecified fall, initial encounter
CPT/HCPCS: 71101; 96374; 99284; J1170

== ENCOUNTER → 2023-04-22 12:23 | Outpatient (CLI) | payer MEDICARE, OTHER, SELFPAY ==
--- NOTE | 2023-04-22 | DI.ECHO.S_ITS ---
[facility]---------+ [facility] +---------+ : : [address] : [address] : : : : [id number] : : : : Phone: [phone] Echocardiogram Report + + :Name: BIJAN KAPLAN Study Date: 04/22/2023 Height: 70 in : :[facility] ReadingLocation: Weight: 258 lb : : Gender: Male BSA: 2.3 m2 : :: 1965 Age: 57 yrs BP: 141/100 mmHg: :Reason For Study: DYSPNEA : :Ordering Physician: LUZ MARINA, : :TIERRA Performed By: Mindy Reina : :Referring: TIERRA CHACON : + + Interpretation Summary 1) Normal left ventricular thickness, size, wall motion, and systolic function (EF 55-60%). 2) Normal right ventricular size and function. 3) No significant valvular abnormalities. 4) No prior Echo available for comparison. Procedure: A two-dimensional transthoracic echocardiogram with color flow and Doppler was performed. The study quality was technically adequate. There is no prior echocardiogram noted for this patient. The patient was in sinus rhythm with heart rates between 72-86 bpm during the exam. Left Ventricle: The estimated left ventricular end diastolic volume is 64 ml. The left ventricle is normal in size and wall thickness. The ejection fraction is estimated to be 55-60%. Left ventricular systolic function appears normal without focal wall motion abnormalities. Diastolic parameters suggest a relaxation abnormality of the left ventricle, consistent with probable normal filling pressures. Right Ventricle: The right ventricle is normal in size and function. Atria: The left atrial size is normal. Right atrial size is normal. There is no Doppler evidence for an interatrial shunt. Mitral Valve: There is mild mitral annular calcification. There is no mitral regurgitation noted. Aortic Valve: The aortic valve is trileaflet. The aortic valve opens well. There is no aortic valve stenosis. No aortic regurgitation is present. Tricuspid Valve: The tricuspid valve is normal in structure and function. There is mild tricuspid regurgitation. The right ventricular systolic pressure is estimated to be at least 28 mmHg based on an estimated right atrial pressure of 3 mm Hg. Pulmonic Valve: The pulmonic valve leaflets are thin and pliable; valve motion is normal. There is no pulmonic valvular regurgitation. Great Vessels: The aortic root is normal size. The dimensions of the ascending aorta are normal. The IVC is of normal diameter and collapses greater than 50% with a sniff. This suggests a low right atrial pressure of 3 mm Hg. Pericardium/ Pleura There is no pericardial effusion. There is no pleural effusion. MMode/2D Measurements & Calculations LVIDd: 2.7 cm LVOT diam: 2.2 cm LVIDs: 2.0 cm Ao root diam: 3.3 cm FS: 26.9 % asc Aorta Diam: 3.6 cm EPSS: 1.0 cm Ao Arch Diam (Prox Trans): 2.9 cm IVSd: 1.0 cm LVPWd: 1.0 cm LV chavez. diameter/BSA (cm/m^2): 1.2 LV sys. diameter/BSA (cm/m^2): 0.86 LA A2 area: 22.2 cm2 RA long axis: 4.8 cm LA A4 area: 14.9 cm2 RA area: 12.3 cm2 LA length (vol): 4.9 cm RA vol: 27.0 ml LA vol: 57.0 ml RA : 11.6 ml/m2 LA vol index: 24.5 ml/m2 IVC diam: 1.7 cm RVD1 (basal): 3.3 cm TAPSE: 2.0 cm Doppler Measurements & Calculations Ao V2 max: 104.7 cm/sec LVOT Max Armando: 82.9 cm/sec Ao V2 mean: 77.1 cm/sec LV V1 max P.7 mmHg Ao max P.4 mmHg LV V1 VTI: 16.0 cm Ao mean P.6 mmHg DANIKA(I,D): 3.3 cm2 Ao V2 VTI: 18.9 cm DANIKA(V,D): 3.0 cm2 sev ratio: 0.85 DANIKA indexed to BSA (cm^2/m^2): 1.4 MV E max armando: 53.1 cm/sec TR max armando: 251.7 cm/sec MV A max armando: 68.8 cm/sec TR max P.3 mmHg MV E/A: 0.77 PA V2 max: 98.5 cm/sec Med Peak E' Armando: 6.1 cm/sec PA V2 mean: 67.4 cm/sec E/E' med: 8.7 PA mean P.1 mmHg Lat Peak E' Armando: 9.2 cm/sec PA pr(Accel): 41.7 mmHg E/E' lat: 5.8 E/e' average: 7.2 MV dec time: 0.24 sec SV(LVOT): 61.6 ml Reading Physician:02:47 PM
== END ==
PROVIDERS: Referring Provider Internal Medicine Cardiovascular Disease; Visit Provider Internal Medicine Cardiovascular Disease
DX: R06.09 Other forms of dyspnea (principal)
CPT/HCPCS: 93306

== ENCOUNTER → 2024-11-07 10:40 | Outpatient (CLI) | payer OTHER, SELFPAY ==
--- NOTE | 2024-11-07 10:42 | DI.MRI.S_ITS ---
PROCEDURE: MR LUMBAR SPINE WO CON INDICATIONS: SPONDYLOSIS W/RADICULOPATHY TECHNIQUE: Noncontrast sagittal T1 spin echo and T2 fast echo, sagittal STIR, and T2 fast spin echo through the lumbar spine. In cases with scoliosis, additional coronal T2 fast spin echo may be performed. COMPARISON: [facility], MR, MR LUMBAR SPINE WO CON, 01/24/2020, 11:12. FINDINGS: Image quality: Excellent. Alignment and Curvature: There is normal bony alignment. Bone Marrow: Marrow is of normal overall signal. No acute vertebral body compression fractures. Spinal Cord: Conus medullaris terminates at the L1-L2 level. Visualized cord demonstrates normal signal and size. Paraspinous Soft Tissues: No paravertebral masses. T12-L1: Normal appearance. L1-L2: Disc desiccation and mild height loss. No central canal or neural foraminal stenosis. L2-L3: Mild facet arthropathy. No central canal or neural foraminal stenosis. L3-L4: Disc desiccation and minimal disc bulge. Facet arthropathy. Mild central canal and [id number] bilateral neural foraminal stenosis. L4-L5: Disc desiccation and posterior annular tear. No central canal stenosis. Stable moderate bilateral neural foraminal stenosis. L5-S1: Disc desiccation and moderate height loss. Central disc protrusion. Facet arthropathy. No central canal stenosis. Moderate bilateral neural foraminal stenosis. IMPRESSION: 1. Stable degenerative changes of the lumbar spine as described above. 2. No significant central canal stenosis. Stable moderate bilateral neural foraminal stenosis at L4-5 and L5-S1. Dictated by: Lester Aden M.D. on 11/07/2024 at 14:34 Approved by: Lester Aden M.D. on 11/07/2024 at 14:39
== END ==
PROVIDERS: PCP Registered Nurse; Referring Provider Registered Nurse; Visit Provider Registered Nurse
DX: M47.26 Other spondylosis with radiculopathy, lumbar region (principal); M47.27 Other spondylosis with radiculopathy, lumbosacral region; M48.061 Spinal stenosis, lumbar region without neurogenic claudication; M48.07 Spinal stenosis, lumbosacral region
CPT/HCPCS: 72148